=== PATIENT | male | born 1980 | race Caucasian/White ===

== ENCOUNTER → 2016-06-29 | Outpatient (CLI) | payer OTHER ==
[~2016-06-29] MED LIST: BUSP5TA PO; ZOLO100T PO
[2016-06-29 14:59] LABS: ANION GAP 9 MEQ/L (8-16); BLOOD UREA NITROGEN 11 MG/DL (7-18); CARBON DIOXIDE LEVEL 28 MEQ/L (21-32); CHLORIDE LEVEL 104 MEQ/L (98-107); CREATININE FOR GFR 0.96 MG/DL (0.70-1.30); GLOMERULAR FILTRATION RATE > 60.0 (>60); GLUCOSE, FASTING 79 MG/DL (70-105); SODIUM LEVEL 141 MEQ/L (136-145)
--- NOTE | 2016-06-30 17:23 | ECGEPIP ---
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
== END ==
LOC: M LAB 14:02
PROVIDERS: ATTEND Orthopaedic Surgery
DX: Z01.818 Encounter for other preprocedural examination (principal); M48.02 Spinal stenosis, cervical region

== ENCOUNTER 2016-07-01 07:02 | Inpatient (IN) | payer OTHER ==
--- NOTE | 2016-06-30 09:33 | HPE ---
DATE OF ADMISSION: 07/01/2016 ATTENDING PHYSICIAN: Dr. Zaman. CHIEF COMPLAINT: Neck pain and pain radiating to both arms. 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 He has failed to improve with NSAIDs, physical therapy and activity modification. He continues to have symptoms with normal day-to-day activities. At times, he gets pain that radiates between the shoulder blades if he turns his head to the left or right and he gets pain mainly to the left side, occasionally to the right. His left shoulder pain has worsened with activities and at night though the pain seems to radiate into his right shoulder. He has consented for an anterior cervical decompression and fusion C3-4, C4-5 and C5-[address] Zaman. He has elected for surgery for his continued symptoms. His MRI is consistent with severe stenosis at C3-4 and C4-5 and to a lesser degree at C5-6. X-rays are notable for very minimal degenerative changes of the cervical spine, mainly at C1-2. There is reversal of his lordosis. MEDICAL OPTIMIZATION: None. ALLERGIES: No known drug allergies. CURRENT MEDICATIONS: - Zoloft 200 mg 1 tablet once per day - BuSpar 5 mg as needed - he also uses Lidoderm patches and topical agent as needed MEDICAL HISTORY (Includes): 1. Post traumatic stress disorder. 2. Depression. 3. Anxiety. 4. Cervical spinal stenosis. SURGICAL HISTORY: Includes right ankle surgery. SOCIAL HISTORY: Does not currently smoke. He uses alcohol occasionally. He is currently an active duty soldier. REVIEW OF SYSTEMS: Denies fever or chills. Denies chest pain, shortness breath or cough. Denies recent upper respiratory tract (URI) or urinary tract infection (UTI) symptoms. Denies nausea or vomiting. Has persistent pain into both upper extremities, left greater than the right. PHYSICAL EXAM: Today, reveals a well-nourished, well-developed, alert male patient who walks with a normal gait. His gait is not wide-based. He does not use assistive devicdes. Brooke's and clonus are negative. Spurling's is positive to the left side. Deep tendon reflexes are 2 at the right biceps, 1 at the left biceps, 1 at the right triceps, 3 at the left triceps, 2 at the brachial radialis, 3 at the knees, 2 at the ankles. Tandem walk is intact. His neck is supple without adenopathy or jugular venous distention (JVD). Lungs are clear to auscultation without rales or wheeze. Heart: Regular rate and rhythm. Abdomen: Bowel sounds are present. LABORATORY DATA: Glucose 79, BUN 11, creatinine 0.96, sodium 141, potassium 4. His electrocardiogram (EKG) is pending. IMPRESSION: Cervical spinal stenosis C3-4, C4-5 and C5-6 as well left upper extremity radiculopathy. PLAN: He is consented for an anterior cervical decompression and fusion C3-4, C4-5 And C5-6. We are going to use a VG2 graft.
[~2016-07-01] VITALS: Ht 172.7 cm; Wt 115.8 kg
[2016-07-01] VITALS (7 sets, daily range): BP systolic 134–163; BP diastolic 69–83
[2016-07-01] MEDS ORDERED: LR 1,000 ML IV SCH ×3 (07:15→16:15)
[2016-07-01] MEDS ORDERED: PERCOCET 5MG/325MG TAB PO SCH (07:15)
[2016-07-01] MEDS ORDERED: PREGABALIN 75 MG CAP(LYRICA) PO ONE (08:00)
[2016-07-01] MEDS ORDERED: methylPREDNISolone 500 MG VIAL (J2930) As Ordered ONE (10:28)
[2016-07-01] MEDS ORDERED: BACITRACIN PWD 50,000 UNITS VIAL As Ordered ONE ×2 (10:28→10:40)
[2016-07-01] MEDS ORDERED: LIDOCAINE W/EPINEPHRINE 1% 20ML VIAL As Ordered ONE (10:28)
[2016-07-01] MEDS ORDERED: THROMBIN SOLN 20,000 UNITS KIT As Ordered ONE (10:28)
--- NOTE | 2016-07-01 11:37 | REP ---
CHEST, PORTABLE: AP portable view of the chest is performed. Two views are obtained. COMPARISON: 10/27/2014. Images are taken in the AP supine projection which magnifies the cardiomediastinal silhouette. The vasculature is prominent. The lung volumes are diminished with scattered bilateral atelectatic changes. I suspect mild diffuse interstitial edema. There is focal atelectasis or infiltrate in the left lung base in the retrocardiac region. Endotracheal tube is seen with the tip 6.5 cm above the izaiah. IMPRESSION: Prominent vasculature with scattered bilateral atelectatic changes and low lung volumes. I suspect mild interstitial edema. There is focal atelectasis or infiltrate in the left lung base. Signed by Elroy Gerardo MD 07/01/2016 01:29 P
[2016-07-01] MEDS ORDERED: PROPOFOL 200 MG/20 ML VIAL As Ordered ONE (11:42)
[2016-07-01] MEDS ORDERED: MIDAZOLAM INJ 2 MG/2 ML VIAL (J2250) As Ordered ONE (11:42)
[2016-07-01] MEDS ORDERED: ONDANSETRON 4MG/2ML VIAL (J2405) As Ordered ONE (11:42)
[2016-07-01] MEDS ORDERED: fentaNYL 100 MCG/2 ML INJECTION (J3010) As Ordered ONE ×3 (11:42→15:33)
[2016-07-01] MEDS ORDERED: dexameTHASONE 4 MG/ML 1ML VIAL (J1100) As Ordered ONE (11:42)
[2016-07-01] MEDS ORDERED: fentaNYL 250 MCG/5 ML INJECTION (J3010) As Ordered ONE (11:42)
[2016-07-01] MEDS ORDERED: ROCURONIUM BROMIDE 50 MG/5 ML VIAL As Ordered ONE (11:42)
[2016-07-01] MEDS ORDERED: ePHEDrine SULFATE 25 MG/5 ML(5MG/ML) SYRINGE As Ordered ONE (12:02)
[2016-07-01] MEDS ORDERED: PHENYLephrine HCL 500 MCG/5 ML (100MCG/ML) SYRINGE (J2370) As Ordered ONE ×2 (12:02→13:36)
[2016-07-01] MEDS ORDERED: GLYCOPYRROLATE INJ 0.2 MG/ML 2 ML VIAL As Ordered ONE (12:10)
[2016-07-01] MEDS ORDERED: NEOSTIGMINE 1MG/ML 5 ML SYRINGE (J2710) As Ordered ONE (12:10)
[2016-07-01] MEDS ORDERED: LIDOCAINE W/EPINEPHRINE 1% 20ML VIAL XX ONE (13:17)
[2016-07-01] MEDS ORDERED: BACITRACIN PWD 50,000 UNITS VIAL IR ONE ×2 (13:17)
[2016-07-01] MEDS ORDERED: THROMBIN SOLN 20,000 UNITS KIT XX ONE (13:17)
[2016-07-01] MEDS: fentaNYL 100 MCG/2 ML INJECTION (J3010) IV PRN ×4 (15:35→15:54)
[2016-07-01] MEDS ORDERED: MORPHINE 10 MG/ML 1ML VIAL As Ordered ONE (16:02)
[2016-07-01] MEDS ORDERED: PERCOCET 5MG/325MG TAB As Ordered ONE (16:02)
[2016-07-01] MEDS: PERCOCET 5MG/325MG TAB PO PRN ×2 (16:05→20:05)
[2016-07-01] MEDS: MORPHINE 2 MG/ML 1ML SYRINGE IV PRN ×3 (16:05→16:23)
[2016-07-01] MEDS ORDERED: PROMETHAZINE INJ 25 MG/ML VIAL (J2550) IV PRN (16:15)
[2016-07-01] MEDS ORDERED: HYDROmorphone HCL 1 MG/ML SYRINGE (J1170) IV PRN ×2 (16:15)
[2016-07-01] MEDS ORDERED: D5W/LR 1,000 ML IV SCH (16:15)
[2016-07-01] MEDS ORDERED: PERCOCET 5MG/325MG TAB PO PRN (16:15)
[2016-07-01] MEDS ORDERED: ONDANSETRON 4MG/2ML VIAL (J2405) IV PRN (16:15)
[2016-07-01] MEDS ORDERED: CYCLOBENZAPRINE 10 MG TAB PO PRN (16:15)
[2016-07-01] MEDS ORDERED: ACETAMINOPHEN TAB 650MG DOSE (2X325MG) PO PRN (16:15)
--- NOTE | 2016-07-01 16:43 | REP ---
CERVICAL SPINE, TWO VIEWS: HISTORY: Spinal stenosis. Two portable lateral radiographs were obtained in the operating room. The first radiograph demonstrates a metal probe overlying the C3-4 intervertebral disc. The second radiograph demonstrates the patient to be status post C3 to C6 anterior spinal fusion. A fixation plate and bone graft material are present. Radiopaque density is present overlying the C3 and C4 vertebral bodies. IMPRESSION: The patient is status post C3 to C6 anterior spinal fusion. There is anatomic alignment. Signed by Satish Man MD 07/01/2016 05:06 P
[2016-07-01] MEDS: PREGABALIN 75 MG CAP(LYRICA) PO SCH (20:03)
[2016-07-01] MEDS: DOCUSATE SODIUM 100 MG CAP PO SCH (20:04)
[2016-07-01] MEDS: ASCORBIC ACID 500 MG TAB PO SCH (20:04)
[2016-07-02 01:30] VITALS: BP 134/63
[2016-07-02] MEDS: PERCOCET 5MG/325MG TAB PO PRN ×2 (01:34→06:48)
[2016-07-02 03:30] VITALS: BP 165/78
[2016-07-02 06:00] VITALS: BP 138/73
--- NOTE | 2016-07-02 08:40 | REP ---
Cervical spine series: Two views. History: Evaluate hardware placement. Postop. Findings: AP and lateral views demonstrate that the patient is status post ventral discectomy and fusion plating from C3 through C6. Alignment is normal. Bone graft disc devices are in place. Some prevertebral swelling is seen diffusely with a small quantity of postoperative air. There are clips to the right of the cervical spine on the frontal view. Impression: Status post ventral discectomy and fusion C3 through C6. Signed by Arnaldo Wetzel MD 07/02/2016 08:48 A
[2016-07-02] MEDS ORDERED: SERTRALINE 100 MG TAB PO SCH (09:00)
[2016-07-02] MEDS ORDERED: busPIRone 5 MG TAB PO SCH (09:00)
[2016-07-02] MEDS: PREGABALIN 75 MG CAP(LYRICA) PO SCH (09:28)
[2016-07-02] MEDS: DOCUSATE SODIUM 100 MG CAP PO SCH (09:28)
[2016-07-02] MEDS: ASCORBIC ACID 500 MG TAB PO SCH (09:28)
--- NOTE | 2016-07-04 08:09 | RO ---
DATE OF PROCEDURE: 07/01/2016 PREPROCEDURE DIAGNOSES: Cervical spinal stenosis C3-4, 4-5, 5-6 with left upper extremity cervical radiculopathy left upper extremity, mild myelopathy. POSTPROCEDURE DIAGNOSES: Cervical spinal stenosis C3-4, 4-5, 5-6 with left upper extremity cervical radiculopathy left upper extremity, mild myelopathy. PROCEDURE: Anterior cervical decompression and fusion procedure including decompression of thecal sac and exiting nerve roots at the C4-5 level, additional level C3-4, additional level C5-6, use of local autograft for spine surgery morselized, structural allograft for spine surgery utilized at C3-4, C4-5 and C5-6, anterior cervical instrumentation, three cervical segments C3-4, 4-5, 5-6. SURGEON: Dr. Preston Zaman. MONOMER PURIFICATION OPERATOR: Madhu Tejeda PA-C. ANESTHESIA: General. ESTIMATED BLOOD LOSS: Less than 50 mL. REPLACEMENT: Crystalloid. COMPLICATIONS: None. COMPONENTS USED: Include DePuy skyline plate system, 54 mm cervical plate, 15 mm screws at C3, 15 mm screws bilaterally at C6, 14 mm screws at C4 and C5. VG2 allograft bone size 5x7 at 3-4, 5x7 at 4-5, 5x7 at 5-6. 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 Next, he has elected for operative intervention. Next, consent reviewed in detail with the patient including a bharat discussion of the pathology involved, procedure proposed, alternatives including doing nothing. We also talked about bone graft donor bone versus iliac crest bone. He prefers donor bone. We talked about risks including but not limited to pain, failure, infection, bleeding, blood loss, incomplete relief of symptoms, hoarseness, swallowing trouble, need for more surgery, paralysis, and other issues. The patient agrees to proceed. OPERATIVE COURSE: Identified in the holding area, site side verified, brought to the operating room. Once anesthesia was administered, he was positioned for exposure of the cervical spine. Head halter traction 7 pounds was applied. Once I and the analyst geochemical prospecting were comfortable with the patient's positioning, he was then sterilely prepped and draped in the usual fashion. Next, I utilized 3.5 looped magnification for the procedure. I stood on the patient's right side. Mr. Tejeda stood on the patient's left side. The incision was outlined with a marking pen, infiltrated with 1% lidocaine with epinephrine and made with the 10 blade knife developed down through skin and subcuticular tissues to the platysma muscle group. The platysma was elevated and divided perpendicular to its fibers using bipolar cautery as well as the tenotomy scissors. Sternocleidomastoid was identified and dissection continued medial to the sternocleidomastoid. The omohyoid was identified and elevated during exposure. It was divided the sternocleidomastoid using bipolar cautery and tenotomy scissors. Also a large branch of the external jugular traversed the sagittal dimension of the dissection and this was ligated with ties and divided. Next, incision continued developing superiorly. I then identified a small artery in the superior aspect of the incision and this was tied off and divided. To this, I applied Hemoclips and divided the artery. Next, I exposed the 3-4 disc space, I placed a Bayonet spinal needle to the space at 3-4 and we obtained a cross-table lateral x-ray to verify our level. Once the level was verified, we marked along the colli muscle at the 3-4 level and elevated the medial border and the longus coli muscle at the 03/04 level and elevated the medial border and boxed out the 3-4 level. I then continued to improve the dissection proximally and distally so that all spaces could be exposed from 3-4 through 5-6. Next, once this was accomplished, I elevated the medial border of the longus coli muscle along the length of the prevertebral dissection. Next, I placed the shadow line retractor at the C4-5 level because this was the most stenotic level. I placed distraction pins at this level and Mr. Tejeda assisted in placement of the shadow line in maintaining its position. Next, annulotomy was accomplished using 11 blade knife. We removed disc material using pituitaries. I removed cartilaginous endplate using curved curette #3-0. Next, once this was accomplished, oval bur was utilized to further contour the end plates and I did collect some bur milling from the uncinate processes and these were obtained for bone graft. Posterior longitudinal was identified, elevated with #4-0 curettes and then removed using #2 Kerrison punches exposing the thecal sac. There did seemed to be a small amount of disc material that was posterior to the posterior longitudinal ligament to the left midline at this level. Next, the rasps were utilized to prepare the end plates at 4-5. I selected a 5 x 6 sound which seemed to fit appropriately. Next, we then placed distraction pins across the 3-4 level and distracted across 3-4 and conducted an annulotomy discectomy and decompression in a similar fashion including debriding posterior to the uncinate processes. We removed the PLL at this level as well and directly visualized the thecal sac. Irrigation was accomplished, rasps were used again through a size [id number] and 5x7 sound. At the 3-4 level, I placed at 5x7 graft which had bone graft which was local autograft obtained the uncinate processes. This was pressed into the bone graft. It was tamped into place. We then removed the superior distraction pin subluxed to the mid level and I installed the 5x7 graft at the C5-6 level as well. We then removed the C4 pin, contoured the anterior vertebral body and subluxed the C5-6. Distraction pins were placed across C5-6 and the annulotomy accomplished with an 11 blade and again, the disc space preparation was accomplished in the same fashion as above including taking down the PLL and decompressing under the uncinate processes to decompress the neural foramina. Next, again rasps were utilized and again we utilized the 5x7. The 5x7 graft was placed and tamped into the place. All distraction pins removed. Pin holes were repaired with wax. Oval bur was utilized contour the anterior vertebral column. Mr. Tejeda assisted with positioning. Next, we selected a size 54 mm skyline plate and this was placed in the anterior vertebral bodies spanning C3-C6. The plate was secured by drilling using a 12 mm drill and the drill guide followed by placement of 15 mm screws at the C3 level bilaterally and 15 mm screws at the C6 level bilaterally, 14 mm screws at the intervening levels. The plate and screws were locked into place. A cross-table lateral was obtained to verify plate placement. Please also note the head halter traction was removed prior to placement of the plate. Also note irrigation was accomplished prior to plate placement and graft placement. Please also note we inspected for bleeding and no active bleeding was appreciated. Next, all retractors were removed. Platysma was reapproximated using interrupted stitch and skin was approximated using Dermabond. [place] collar was applied. The patient was able to be extubated and moved to the recovery room in good condition. For further details, please refer to the medical record.
--- NOTE | 2016-07-05 07:48 | DSES ---
DATE OF ADMISSION: 07/01/2016 DATE OF DISCHARGE: 07/02/2016 ATTENDING PHYSICIAN: Dr. Zaman. ADMISSION DIAGNOSES: Cervical spinal stenosis C3-4, C4-5 and C5-6. Left upper extremity radiculopathy. Mild myelopathy. OTHER DIAGNOSES: Post-traumatic stress disorder. Anxiety. Depression. DISCHARGE DIAGNOSES: Cervical spinal stenosis C3-4, C4-5, C5-6. Left upper extremity radiculopathy and mild myelopathy status post anterior cervical decompression and fusion C3-4, C4-5, C5-6. HISTORY: This is a pleasant 36-year-old male patient with progressively worsening neck pain, pain radiating to mainly his left upper extremity, at times to his right upper extremity. He failed to improve with conservative management to include non-steroidal anti-inflammatory drugs (NSAID)s, physical therapy, activity modifications. He was admitted for elective anterior cervical decompression and fusion C3-4, C4-5 and C5-6. OPERATION PERFORMED: Anterior cervical decompression and fusion C3-4, C4-5, C5-6. HOSPITAL COURSE: The patient was admitted on day of surgery and underwent the above-listed procedure, it was uneventful. He did well in the postoperative period. His hospital course was without complications. On day of discharge, he was able to tolerate the cervical collar. His pain was controlled with oral pain medications. He is weightbearing as tolerated on the lower extremities. He will resume his preoperative medications and diet. He was given instructions to include but not limited to wound monitoring, activity limitations and the wear of the cervical collar. He will follow up in our office in 7-10 days for surgical followup and will use oral pain medications for pain control. Please refer to the medical record for further details.
== END 2016-07-02 10:05 | disposition home or self-care (01) | DRG 472 ==
LOC: M OR 07:02 → M MS5PR 16:48
PROVIDERS: ADMIT Orthopaedic Surgery; ATTEND Orthopaedic Surgery
PROC: 0RG20A0 Fusion of 2 or more Cervical Vertebral Joints with Interbody Fusion Device, Anterior Approach, Anterior Column, Open Approach (ICD-10-PCS; principal; 2016-07-01 09:15)
DX: M48.02 Spinal stenosis, cervical region (principal); M50.01 Cervical disc disorder with myelopathy, high cervical region; F43.10 Post-traumatic stress disorder, unspecified; F41.9 Anxiety disorder, unspecified; M50.11 Cervical disc disorder with radiculopathy, high cervical region; M50.121 Cervical disc disorder at C4-C5 level with radiculopathy; F32.9 Major depressive disorder, single episode, unspecified